=== PATIENT | male | born 2005 | race Caucasian/White ===

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

== ENCOUNTER 2024-01-29 07:31 | Outpatient (CLI) | payer BC, SELFPAY ==
--- NOTE | 2024-01-29 07:34 | MR_ITS ---
FINAL REPORT CLINICAL HISTORY: THORACIC BACK PAIN. left sided mid back pain. left shoulder pain. no injury or trauma COMPARISON: None FINDINGS: Multiplanar MR imaging of the thoracic spine was performed without and with contrast. On the sagittal T2-weighted images, mild disc degeneration is seen in the mid thoracic spine. Multiple Schmorl's nodes are identified. There is no evidence of fracture. The vertebral alignment is normal. No bony mass is identified. The thoracic spinal cord has an unremarkable appearance without evidence of mass, edema or syrinx. There is no evidence of significant canal stenosis. On the axial images, no significant annular bulge or protrusion is seen. There is no evidence of disc protrusion. No significant canal stenosis is identified. On the postcontrast images, no abnormal contrast enhancement is identified. IMPRESSION: Mild degenerative change mid thoracic spine without a focal disc protrusion. No abnormal contrast enhancement identified. Reviewed, Interpreted and Dictated by Jose Eduardo Bhardwaj III, MD Transcribed by Ayla Hernandez Authenticated and [facility]
[2024-01-29] MEDS: SODIUM CHLORIDE 0.9% 10ML SYR (RAD ONLY) 10 ML IV (08:25)
[2024-01-29] MEDS: GADOTERIDOL INJ 17ML SYRINGE 15 ML IV (08:26)
== END 2024-01-29 23:59 ==
LOC: RAD 07:32
PROVIDERS: PCP Family Medicine; Visit Provider Family Medicine
DX: M54.6 Pain in thoracic spine (principal)
CPT/HCPCS: 72157; A9576